=== PATIENT | male | born 1940 | race Caucasian/White ===

== ENCOUNTER → 2024-05-09 10:43 | Outpatient (REF) | payer OTHER, SELFPAY ==
[2024-05-09 12:01] LABS: % Basophils 1.4 % (0-2); % Immature Granulocytes 0.5 % (0-0.5); % Lymphocytes 40.3 % (20.5-51.1); % Monocytes 9.7 % (1.7-9.3); % Neutrophils 44.1 % (42.2-75.2); Absolute Basophils 0.1 10^3/uL (0-0.2); Absolute Eosinophils 0.3 10^3/uL (0-0.7); Absolute Lymphocytes 2.6 10^3/uL (1.2-3.4); Absolute Monocytes 0.6 10^3/uL (0.1-0.6); Absolute Neutrophils 2.9 10^3/uL (1.4-6.5); Hematocrit 45.7 % (39.0-52.0); Hemoglobin 15.8 g/dL (13.0-18.0); Mean Corp Hgb Conc. 34.6 g/dL (33.0-37.0); Mean Corpuscular Hgb 31.1 pg (27.0-31.0); Mean Platelet Volume 12.8 fL (7.4-10.4); Nucleated Red Blood Cells % 0 % (-); Platelet Count 136 10^3/uL (130-400); Red Blood Cell Count 5.08 10^6/uL (4.70-6.10); Red Cell Dist. Width 13.5 % (11.5-14.5); White Blood Cell Count 6.5 10^3/uL (4.8-10.8)
[2024-05-09 13:28] LABS: Blood Urea Nitrogen 22 mg/dl (9-20); Calcium 9.5 mg/dl (8.4-10.2); Carbon Dioxide 23 mmol/L (22-30); Chloride 107 mmol/L (98-107); Glucose 101 mg/dl (70-99); Potassium 4.7 mmol/L (3.5-5.1); Sodium 138 mmol/L (135-145); eGFR > 60.00
== END ==
LOC: REG 10:43
PROVIDERS: ATTENDING PHYSICIAN Registered Nurse
DX: R06.02 Shortness of breath (principal)
CPT/HCPCS: 36415; 71046; 80048; 85025

== ENCOUNTER 2024-05-11 10:42 | Emergency (ER) | payer OTHER, SELFPAY ==
[2024-05-11 10:49] VITALS: BP 112/60; BMI 25.8
--- NOTE | 2024-05-11 11:50 | ED.GENMED ---
Addendum entered and electronically signed by David Aguilar MD 05/12/24 20:01:
I had asked the patient or offered to recheck it today. Patient feels there is no significant change. No worse no significant improvement no systemic symptoms.
On exam I agree there is no significant change. This may be slightly less erythema. Clearly not worse. Patient is nontoxic. Is only been 24 hours. I was not expecting significant improvement just wanted to be sure it was not progressing. He
will continue outpatient treatment and observation. I did offer again to recheck it tomorrow after 3:00 if he had any concerns
Original Note:
History of Present Illness
General
Chief Complaint: Skin Problem
Source: patient
Exam Limitations: none
Time Seen by Provider: 05/11/24 11:42
History of Present Illness
History of Present Illness:
Patient was bitten in the finger of his second digit left hand yesterday by his own dog. Dog is up-to-date on immunizations. Seen at urgent care. Given a tetanus shot. Did not start antibiotics. Complain of increased swelling and pain. Some
chills last evening but no significant infectious systemic symptoms at this time
Past History
Past History
ED Past Medical History: Other (BPH, UTI) and Other (diverticulitis)
ED Past Surgical History: Other (Hernia repair)
Social History
Tobacco: Former smoker
Alcohol: None
Living: with family
Family History
Family History: Unable to obtain
Phy Exam
Physical Exam
Physical Exam:
General: Nontoxic appearing in no distress
Skin: Warm and dry, no rash
Neuro: Alert, nontoxic, grossly nonfocal
Psychiatric: Good eye contact and appropriate
Musculoskeletal: Swelling to the left second digit diffusely with a small puncture wound to the tuft. No drainage. Questionable slight minimal erythema to the dorsal hand. Motor or sensory neurovascular intact.
Course
Orders/Labs/Results
Orders:
Orders
05/11/24 11:49
Ampicillin/Sulbactam 3 G [Unasyn] 3 gm 0.9% Sodium Chloride 100 ml [Nss] 100 ml IV NOW
Vital Signs
Initial and Last Documented VS:
Initial Vital Signs
Temp Pulse Resp BP Pulse Ox
98.4 F 73 18 112/60 97
05/11/24 10:49 05/11/24 10:49 05/11/24 10:49 05/11/24 10:49 05/11/24 10:49
Last Documented Vital Signs
Temp Pulse Resp BP Pulse Ox
98.4 F 73 18 112/60 97
05/11/24 10:49 05/11/24 10:49 05/11/24 10:49 05/11/24 10:49 05/11/24 10:49
*Critical Care Note
Total Time (30-74mins, 75-104mins- exclusive of procedures): Not Applicable
Update Note
Update Note:
Patient with a local cellulitis secondary to dog bite. No significant systemic symptoms. Do not feel this requires ongoing IV antibiotics but feel a IV start would be reasonable. I also offered to recheck it tomorrow with any concerns.
ED Attending Note
-
Portions of this chart may have been created with voice recognition software.� Occasional wrong word or��sound alike� substitutions may have occurred due to the inherent limitations of voice recognition software.
Discharge Plan
Departure
Patient Disposition: Home (Routine Discharge)
Date of Disposition: 05/11/24
Time of Disposition: 11:51
Patient with high blood pressure during this ER visit?: No
Discharge Problem:
Left second digit cellulitis, Secondary to dog bite
Instructions: Cellulitis (Skin Infection), Adult (DC), Animal Bites ED
Prescriptions:
New
amoxicillin-pot clavulanate 875-125 mg tablet
1 tab PO BID Qty: 20 0RF
No Action
tamsulosin 0.4 MG capsule
0.4 mg PO HS
sumatriptan succinate 50 MG tablet
50 mg PO DAILYPRN PRN (Reason: migrain)
finasteride 5 MG tablet
5 mg PO HS
Saccharomyces boulardii 250 MG capsule
250 mg PO BID Qty: 30 0RF
metronidazole 500 MG tablet
500 mg PO TID Qty: 21 0RF
levofloxacin 500 MG tablet
500 mg PO DAILY Qty: 7 0RF
benzonatate 200 mg capsule
200 mg PO BID PRN (Reason: Cough) Qty: 14 0RF
Activity Restrictions/Additional Instructions:
Make sure you get a dose of Augmentin in this evening. The prescription was sent to your pharmacy.
As we discussed, I am here tomorrow evening at 7 PM. I will be happy to recheck it with any concern
However if you feel like is progressed significantly before then please return immediately for reevaluation
Follow-up with your primary physician in 2 to 3 days
Interventions
Interventions:
*Risk Screen - Suicide Last Done: 05/11/24 10:49
*Neglect/Abuse Screening Last Done: 05/11/24 10:49
ED- Fall Risk Assessment Last Done: 05/11/24 10:49
Discharge Date and Time
Print Language: LATVIAN
[2024-05-11] MEDS: TYLENOL 1000 MG PO (12:04)
[2024-05-11] MEDS: UNASYN IV (12:16)
== END 2024-05-11 12:52 | disposition home or self-care (01) ==
LOC: EMR 10:42
PROVIDERS: EMERGENCY PHYSICIAN Emergency Medicine; FAMILY PHYSICIAN Family Medicine
DX: S61.231A Puncture wound without foreign body of left index finger without damage to nail, initial encounter (principal); W54.0XXA Bitten by dog, initial encounter; N40.0 Benign prostatic hyperplasia without lower urinary tract symptoms; Z87.440 Personal history of urinary (tract) infections; Z87.891 Personal history of nicotine dependence
CPT/HCPCS: 99282; 96374

== ENCOUNTER 2024-05-13 19:04 | Inpatient (IN) | payer OTHER, SELFPAY ==
[2024-05-13 16:48] VITALS: BMI 26.5
[2024-05-13 16:50] VITALS: BP 153/86
--- NOTE | 2024-05-13 17:22 | CON.ORTHO ---
Consultation
-
Date/Time Consultation Requested: 445 PM 05/13/2024
Date/Time Consultation Performed: 515 PM 05/13/2024
Requesting Provider: Jeff
Performing Provider: Roland
Reason for Consultation: Left index dog bite
Consultation - Orthopedics
History
HPI: 84-year-old [id number] male presented to the [place] emergency department for evaluation of left index finger pain and swelling. He reports that several days ago he sustained a dog bite from his own dog to the distal aspect of his
left index finger. He initially presented to an urgent care who did not prescribe any antibiotics. 16 emergency department where he was given 1 dose of Unasyn and started on oral Augmentin on Sunday. He was seen again emergency department
yesterday without significant clinical improvement. Today he was seen emergency department because of worsening pain and swelling. This evening patient localizes pain to the tip of left index finger. He is noted some increasing swelling and
redness. 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 Denies fevers.
Allergies / Home Medications
Past medical history: BPH, diverticulitis
Past surgical history: Herniorrhaphy
Social history: Former smoker, lives with family
Family history: Not pertinent
Allergy/AdvReac Type Severity Reaction Status Date / Time
Sulfa (Sulfonamide Allergy Swelling Verified 05/11/24 10:49
Antibiotics)
�Medication �Instructions �Recorded
finasteride 5 mg tablet 5 mg PO HS 05/15/17
sumatriptan succinate 50 mg tablet 50 mg PO DAILYPRN PRN migrain 05/15/17
tamsulosin 0.4 mg capsule 0.4 mg PO HS 05/15/17
Saccharomyces boulardii 250 mg 250 mg PO BID #30 caps 05/19/17
capsule
levofloxacin 500 mg tablet 500 mg PO DAILY #7 tabs 05/19/17
metronidazole 500 mg tablet 500 mg PO TID #21 tabs 05/19/17
benzonatate 200 mg capsule 200 mg PO BID PRN Cough #14 caps 03/21/23
amoxicillin 875 mg-potassium 1 tab PO BID #20 tabs 05/11/24
clavulanate 125 mg tablet
Vital Signs / Lab Results
Temp Pulse Resp BP Pulse Ox
98.7 F 78 18 153/86 95
05/13/24 16:50 05/13/24 16:50 05/13/24 16:50 05/13/24 16:50 05/13/24 16:50
10 point review systems reviewed and negative unless otherwise stated
General: Pleasant, no acute distress at rest.
Musculoskeletal left upper extremity
Index finger with significant swelling and erythema noted distally, scabbing noted to both the ulnar and radial aspect of the distal index finger. No expressible drainage. There is some evidence of subcutaneous visible purulence however
There is some tenderness palpation along the flexor tendon sheath particularly over P2, no significant tenderness palpation over P1 or A1 rocío, there is some pain with passive extension of the finger, some fusiform swelling noted distally
There is some noted streaking erythema over the distal forearm
Quite limited flexion noted DIP and to lesser extent PIP
No tenderness palpation over the palm
Risk cap refill distally
Assessment / Plan
84-year-old male [id number] several days status post dog bite with clinical evidence of likely abscess versus felon over distal aspect of left index finger with some concerns for potential development of flexor tenosynovitis. At this point
had a long discussion with the patient's regarding diagnosis and treatment options. He is failed to show significant clinical improvement with several days of oral antibiotics. We discussed treatment options and he was in favor of being admitted
for IV antibiotics. Certainly will plan on close clinical reevaluation in the a.m. Should patient fail to have significant proven, I will have a low threshold for proceeding with irrigation debridement of left index finger and potentially flexor
tendon sheath depending on clinical improvement. Would recommend IV antibiotics overnight, radiographs of left index finger. Please keep patient n.p.o. at midnight prophylactically in case we do proceed with surgical irrigation debridement
tomorrow. Please reach out any questions or concerns.
[2024-05-13 17:33] LABS: % Basophils 0.6 % (0-2); % Eosinophils 1.9 % (0-6); % Immature Granulocytes 0.3 % (0-0.5); % Lymphocytes 18.9 % (20.5-51.1); % Monocytes 8.1 % (1.7-9.3); % Neutrophils 70.2 % (42.2-75.2); Absolute Basophils 0.1 10^3/uL (0-0.2); Absolute Eosinophils 0.2 10^3/uL (0-0.7); Absolute Lymphocytes 1.9 10^3/uL (1.2-3.4); Absolute Monocytes 0.8 10^3/uL (0.1-0.6); Hematocrit 41.1 % (39.0-52.0); Hemoglobin 14.7 g/dL (13.0-18.0); Mean Corp Hgb Conc. 35.8 g/dL (33.0-37.0); Mean Corpuscular Hgb 30.9 pg (27.0-31.0); Mean Corpuscular Volume 86.5 fL (80.0-94.0); Mean Platelet Volume 12.2 fL (7.4-10.4); Nucleated Red Blood Cells % 0 % (-); Platelet Count 178 10^3/uL (130-400); Red Blood Cell Count 4.75 10^6/uL (4.70-6.10); Red Cell Dist. Width 13.3 % (11.5-14.5)
[2024-05-13 17:43] LABS: Blood Urea Nitrogen 18 mg/dl (9-20); Calcium 9.4 mg/dl (8.4-10.2); Carbon Dioxide 21 mmol/L (22-30); Chloride 104 mmol/L (98-107); Glucose 110 mg/dl (70-99); Potassium 4.5 mmol/L (3.5-5.1); Sodium 135 mmol/L (135-145); eGFR > 60.00
--- NOTE | 2024-05-13 17:48 | ED.GENMED ---
History of Present Illness
General
Chief Complaint: Skin Problem
Source: patient
Exam Limitations: none
Time Seen by Provider: 05/13/24 17:03
History of Present Illness
History of Present Illness:
Patient with a dog bite to his left second digit 4 days ago. Seen at that time. No antibiotics started. I saw the patient 3 days ago. Local infection and early swelling to the digit with some mild erythema to the forearm dorsally and volar. Was
given a dose of Unasyn and started Augmentin. Was rechecked yesterday had remained stable. However in the last 24 hours has had some increased pain and increased redness along the volar aspect. No systemic symptoms.
Past History
Past History
ED Past Medical History: Other (BPH, UTI) and Other (diverticulitis)
ED Past Surgical History: Other (Hernia repair)
Social History
Tobacco: Former smoker
Alcohol: None
Living: with family
Family History
Family History: Unable to obtain
Review of Systems
Review of Systems
Constitutional: Denies fever or chills
Phy Exam
Physical Exam
Physical Exam:
General: Nontoxic appearing in no distress
Skin: Warm and dry, no rash
Neuro: Alert, nontoxic, grossly nonfocal
Psychiatric: Good eye contact and appropriate
Musculoskeletal: Swelling to the left second digit with erythema. The tip at the tuft has some white puslike areas under the laceration. Lymphangitis on the volar aspect of the arm.
Course
Orders/Labs/Results
Orders:
Orders
05/13/24 17:03
IV Insert/Care/Rem.- Treatment PRN
Finger(s)/Thumb 2 View Lt [CR Finger(s)/thumb Min 2 Vw Lt] Urgent
Comment:
Reason For Exam: bite to second digit
05/13/24 17:23
Basic Metabolic Panel Urgent
Complete Blood Count/With Diff Urgent
05/13/24 18:27
Ampicillin/Sulbactam 3 G [Unasyn] 3 gm 0.9% Sodium Chloride 100 ml [Nss] 100 ml IV NOW
Abnormal Lab Results
05/13/24
17:23
MPV 12.2 H fL
(7.4-10.4)
Absolute Neuts (auto) 7.0 H 10^3/uL
(1.4-6.5)
Absolute Monos (auto) 0.8 H 10^3/uL
(0.1-0.6)
Lymphocytes % 18.9 L %
(20.5-51.1)
Carbon Dioxide 21 L mmol/L
(22-30)
Glucose 110 H mg/dl
(70-99)
05/13/24 17:23
05/13/24 17:23
Vital Signs
Initial and Last Documented VS:
Initial Vital Signs
Temp Pulse Resp BP Pulse Ox
98.7 F 78 18 153/86 95
05/13/24 16:50 05/13/24 16:50 05/13/24 16:50 05/13/24 16:50 05/13/24 16:50
Last Documented Vital Signs
Temp Pulse Resp BP Pulse Ox
98.7 F 80 16 141/77 97
05/13/24 16:50 05/13/24 18:00 05/13/24 18:00 05/13/24 18:00 05/13/24 18:00
MDM/Problems Addressed
Differential Diagnosis Includes:
Patient's symptoms have not improved and pain level is increased overnight. Clear lymphangitis of the forearm. Discussed with orthopedics who evaluated. Agree with IV antibiotics and probable washout tomorrow
*Radiology
Radiology exam reviewed: preliminary read by ED provider (neg)
*Pulse Oximetry
Patient hypoxic: no
*Critical Care Note
Total Time (30-74mins, 75-104mins- exclusive of procedures): Not Applicable
ED Attending Note
-
Portions of this chart may have been created with voice recognition software.� Occasional wrong word or��sound alike� substitutions may have occurred due to the inherent limitations of voice recognition software.
Discharge Plan
Departure
Patient Disposition: Admit
Date of Disposition: 05/13/24
Time of Disposition: 17:50
Presentation/result/management discussed w/ accepting MD/DO: Hospitalist
Discharge Problem:
Dog bite left second digit, Tenosynovitis/lymphangitis
Prescriptions:
No Action
tamsulosin 0.4 MG capsule
0.4 mg PO HS
sumatriptan succinate 50 MG tablet
50 mg PO DAILYPRN PRN (Reason: migraine)
finasteride 5 MG tablet
5 mg PO HS
amoxicillin-pot clavulanate 875-125 mg tablet
1 tab PO BID Qty: 20 0RF
Referrals:
Rajeev Lorenz Jr., DO [Family Provider] -
Interventions
Interventions:
*Risk Screen - Suicide Last Done: 05/13/24 16:50
*General Assessment Last Done: 05/13/24 16:50
*Neglect/Abuse Screening Last Done: 05/13/24 16:50
ED- Fall Risk Assessment Last Done: 05/13/24 18:18
ED-Skin Assessment Last Done: 05/13/24 18:18
Discharge Date and Time
Print Language: [place]
[2024-05-13 18:00] VITALS: BP 141/77
--- NOTE | 2024-05-13 18:07 | HPS.HSE ---
Family Physician
-
Family Physician: Rajeev Lorenz Jr.
Chief Complaint
-
Dog bite
History of Present Illness
84-year-old man with left second finger dog bite 4 days ago. He was seen at urgent care, was not started on antibiotics. That night he came to the ER and started on Augmentin. He was seen again yesterday remained stable. In the last 24 hours
pain increased and he came back to the ER. No fever. Redness present. He got tetanus vaccine at urgent care on Sunday. His dog is vaccinated.
Medical History
Past Medical History
Past Medical History: Reports Other
Additional Past Medical History:
Prostate disease, diverticulosis
Past Surgical History: Reports Other
Additional Past Surgical History:
Hernia repair
Social History
Tobacco: Former Smoker
Alcohol: None
Drug: None
Personal:
Living: With Family
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
Family History
Family History: CAD (Mother who is also a smoker) and Other (Father at age 98)
Allergies / Home Medications
Allergies reflects when Allergies were last updated in [facility].
Home Medications with original date entered in [employer]
Allergy/Medication List:
Allergies
Allergy/AdvReac Type Severity Reaction Status Date / Time
Sulfa (Sulfonamide Allergy Swelling Verified 05/11/24 10:49
Antibiotics)
Home Medications
finasteride 5 mg tablet 5 mg PO HS 05/15/17
sumatriptan succinate 50 mg tablet 50 mg PO DAILYPRN PRN migraine 05/15/17
tamsulosin 0.4 mg capsule 0.4 mg PO HS 05/15/17
amoxicillin 875 mg-potassium clavulanate 125 mg tablet 1 tab PO BID #20 tabs 05/11/24
Review of Systems
-
A 12 point ROS was completed and negative except as noted: Yes
Constitutional: Denies Fever
Respiratory: Denies Trouble Breathing
Cardiac: Denies Chest Pain
Physical Exam
Vital Signs
Vital Signs
Temp Pulse Resp BP Pulse Ox
98.7 F 78 18 153/86 95
05/13/24 16:50 05/13/24 16:50 05/13/24 16:50 05/13/24 16:50 05/13/24 16:50
Physical Exam
General: Well Nourished
Respiratory: Clear
Cardiac: S1/S2 and Regular Rhythm
GI: Soft, Non Tender and Normal Bowel Sounds
Skin: Other (Left hand-finger with redness, pustular changes at the tip. Edema noted. Redness streaking towards the arm)
Neuro: AO x 3 and Nonfocal/grossly intact
Laboratory Results
-
05/13/24 17:23
05/13/24 17:23
Data Reviewed
-
Diagnostic Radiology: Image Personally Visualized and interpreted (X-ray-soft tissue edema left index finger. No foreign body)
Impression/Plan
-
IMPRESSION/PLAN:
# Dog bite cellulitis-treated with Augmentin as outpatient
Admit for IV antibiotics-Unasyn
Got tetanus vaccine on Sunday at urgent care
Xray with out FB or fracture
Ortho already consulted
NPO after MN in case needs a procedure.
# Prostate disease-continue finasteride and Flomax
# Migraine continue sumatriptan as needed
# Sigmoid diverticulosis
# DVT prophylaxis-Lovenox
# Full code
[2024-05-13 19:20] VITALS: BMI 25.8
[2024-05-13 19:35] VITALS: BP 149/83
[2024-05-13] MEDS: FLOMAX 0.4 MG PO (20:17)
[2024-05-13] MEDS: UNASYN IV (20:17)
[2024-05-13] MEDS: PROSCAR 5 MG PO (20:17)
[2024-05-13] MEDS: MOTRIN 400 MG PO (20:20)
[2024-05-13 23:43] VITALS: BP 149/71
[2024-05-13] MEDS: TYLENOL 650 MG PO (23:51)
[2024-05-14] VITALS (11 sets, daily range): BP systolic 121–152; BP diastolic 58–75
[2024-05-14] MEDS: UNASYN IV ×4 (02:10→20:30)
[2024-05-14] MEDS: MOTRIN 400 MG PO ×2 (02:13→09:41)
[2024-05-14] MEDS: ROXICODONE 5 MG PO ×2 (03:10→08:09)
--- NOTE | 2024-05-14 07:42 | W.PN.ORTHO ---
Today's Communication / Plan
-
84-year-old male status post dog bite with clinical evidence of left index finger abscess with concern for developing flexor tenosynovitis. Patient has failed outpatient oral antibiotics without significant improvement with IV antibiotics. Will
plan for operative irrigation debridement later this afternoon
N.p.o.
Please hold DVT prophylaxis
Pain control
Medical management per primary team
Plan 4 OR this afternoon pending medical clearance and OR availability
Subjective
.
.:
Patient reports no significant change in pain or appearance of index finger
Vital Signs and Labs
.
Vital Signs and Labs:
Temp Pulse Resp BP Pulse Ox
98.1 F 67 18 149/71 97
05/13/24 23:43 05/13/24 23:43 05/13/24 23:43 05/13/24 23:43 05/13/24 23:43
Physical Exam
-
Musculoskeletal left upper extremity
Erythema and significant swelling noted distal aspect of left index finger. There is purulence noted subcutaneously without any active drainage. No expressible purulence
There is fusiform swelling noted distal aspect of the left index finger, significant tenderness palpation along the flexor tendon sheath over distal phalanx and middle phalanx with significant reproducible pain with passive extension of finger
[2024-05-14 07:53] LABS: Hematocrit 40.2 % (39.0-52.0); Hemoglobin 14.1 g/dL (13.0-18.0); Mean Corp Hgb Conc. 35.1 g/dL (33.0-37.0); Mean Corpuscular Hgb 31.4 pg (27.0-31.0); Mean Corpuscular Volume 89.5 fL (80.0-94.0); Platelet Count 154 10^3/uL (130-400); Red Blood Cell Count 4.49 10^6/uL (4.70-6.10); Red Cell Dist. Width 13.2 % (11.5-14.5); White Blood Cell Count 8.4 10^3/uL (4.8-10.8)
[2024-05-14 08:18] LABS: Blood Urea Nitrogen 19 mg/dl (9-20); Carbon Dioxide 20 mmol/L (22-30); Chloride 110 mmol/L (98-107); Estimated Creatinine Clearance 67 ml/min; Glucose 93 mg/dl (70-99); Potassium 4.4 mmol/L (3.5-5.1); Sodium 137 mmol/L (135-145); eGFR > 60.00
--- NOTE | 2024-05-14 13:55 | W.PN.HOSP.TC ---
Today's Communication/Plan
-
Please send OR Cultures
IV AB
OR
Assessment / Plan
Assessment / Plan
Left index finger with pustular area. redness in the arm better
# Dog bite cellulitis-treated with Augmentin as outpatient
Admit for IV antibiotics-Unasyn
Got tetanus vaccine on Sunday at urgent care
Xray with out FB or fracture
Ortho already consulted
For OR this afternoon
# Prostate disease-continue finasteride and Flomax
# Migraine continue sumatriptan as needed
# Sigmoid diverticulosis
# DVT prophylaxis-Hold Lovenox
# Full code
Anticipated Discharge: Within 24 hours
Subjective/Interval History
-
Date of Service: May 14, 2024
Objective Data
-
Labs:
Laboratory Results
05/14/24
07:36
WBC 8.4
Hgb 14.1
Hct 40.2
Plt Count 154
Sodium 137
Potassium 4.4
Chloride 110 H
Carbon Dioxide 20 L
BUN 19
Creatinine 0.9
Glucose 93
Calcium 9.0
Vital Signs:
Vital Signs
Temp Pulse Resp BP Pulse Ox
97.9 F 64 18 152/73 97
05/14/24 07:00 05/14/24 07:00 05/14/24 07:00 05/14/24 07:00 05/14/24 07:00
I&O
05/13/24 05/14/24 05/15/24
06:59 06:59 06:59
Intake Total 540 / 540
Balance 540 / 540
[2024-05-14] MEDS: NSS 1000 IV ×2 (14:16→17:35)
--- NOTE | 2024-05-14 14:23 | PTCARENOTE ---
Patient pain in finger relieved with Motrin and Oxycodone. Finger elevated as ordered. NPO status maintained for OR today.
--- NOTE | 2024-05-14 14:48 | CM ---
Patient seen at bedside. IA Completed.
DX: dog bite, cellulitis - left finger
PMH: BPH, diverticulitis.
Patient lives in a 2 story home with his .
2 steps in to the home and 12 steps to bathroom.
PLOF: Independent, drives
Plan for I&D today
PCP: Dr. Rajeev Lorenz
Pharmacy: [facility]
PLAN: Discharge home. no anticipated needs.
--- NOTE | 2024-05-14 16:49 | OR.RPT ---
Addendum entered and electronically signed by Grady Watkins MD 05/27/24 13:39:
Sharp excision debridement of devitalized tissue including subcutaneous tissue, tendon and bone was utilized using a 15 blade, ronguer and currette. Size of incision measured approximatley 4 cm in length by 2 cm in width down to the level of bone
and tendon sheath.
Original Note:
Operative Report
Operative Report
Anesthesia Type:
Sedation with digital block
Operative Indications:
Left index finger dog bite with subsequent abscess development cellulitis and concern for flexor tenosynovitis
Operative Findings :
Significant purulent collection distal volar index finger, minimal purulence flexor tendon sheath
Complications:
None
Implants:
None
Procedure and Technique:
Irrigation debridement left index finger abscess and flexor tendon sheath
INDICATIONS FOR PROCEDURE:
84-year-old male presented status post dog bite left index finger with pain and swelling to the distal aspect left index finger. Initially presented to an urgent care and then subsequently to the emergency department multiple times over the course
of several days. He failed outpatient oral antibiotics and was subsequently admitted to the hospitalist service without significant improvement with IV antibiotics. We discussed treatment options. Given his examination concerning for subcutaneous
purulence as well as concern for developing flexor tenosynovitis, decision was made to proceed with surgery. We discussed risks benefits and alternatives of surgery. After discussion written informed consent was obtained for irrigation debridement
left index finger
OPERATIVE PROCEDURE:
Patient was seen identified the preoperative holding area. Operative extremity was marked. He was taken to the operating room where sedation was administered by the anesthesia providers. Operative extremity was then prepped and draped in normal
sterile fashion. Nonsterile tourniquet was applied. Timeout was performed again identifying the correct operative extremity. Antibiotics were held until after cultures were obtained. Tourniquet was inflated and a Som type incision was made
over the distal family to middle phalanx. Immediate subcutaneous purulence was encountered. Cultures were obtained sharp debridement was performed utilizing a rongeur and curette and copious normal saline solution. Decision was made to proceed
with irrigation debridement of flexor tendon sheath. A incision was made over the A1 rocío proximally and the flexor tendon sheath was opened. Flexor tendon sheath was also opened over the A5 rocío. 16-gauge angiocatheter was then inserted both
proximally and distally and proximally 25 cc of normal saline solution was flushed throughout the flexor tendon sheath. Satisfied with the extent of surgery, wound was copiously irrigated normal saline solution. Tourniquet was released and
hemostasis was achieved with bipolar electrocautery. Wound was closed utilizing 3-0 nylon suture for skin. Closure was somewhat loose to allow for drainage. Sterile dressing was applied consisting of Xeroform, 4 x 4 gauze Vishnu Webril as well as
a volar splint with Shashi bandage. Anesthesia was reversed and patient was taken to PACU in stable condition. Postoperative plans will include continued antibiotics. Will follow-up culture results. Will recommend initiation of 3 times daily
Betadine soaks starting tomorrow morning.
Disposition:
PACU stable condition
[2024-05-14] MEDS: FLOMAX 0.4 MG PO (20:30)
[2024-05-14] MEDS: COLACE 100 MG PO (20:30)
[2024-05-14] MEDS: PROSCAR 5 MG PO (20:30)
[2024-05-15] VITALS (7 sets, daily range): BP systolic 112–152; BP diastolic 59–87
[2024-05-15] MEDS: UNASYN IV ×4 (01:47→20:39)
[2024-05-15] MEDS: NSS 1000 IV ×2 (01:49→14:03)
--- NOTE | 2024-05-15 07:35 | W.PN.ORTHO ---
Today's Communication / Plan
-
84-year-old male postop day 1 status post irrigation debridement left index finger doing well
Nonweightbearing left upper extremity in splint
3 times daily soaks recommended with Betadine solution
Follow-up cultures
Continue antibiotics until speciation and tailor appropriately
Medical management per primary team
Plan to see patient outpatient basis in 1 to 2 weeks for wound check
May be discharged without splint and soft dressings only
Please keep wound dry and covered until outpatient follow-up
Please reach out any questions or concerns
Subjective
.
.:
Patient resting comfortably in bed. No acute overnight events.
Vital Signs and Labs
.
Vital Signs and Labs:
Lab Results
05/14/24 07:36
05/14/24 07:36
Temp Pulse Resp BP Pulse Ox
98.1 F 82 18 122/64 98
05/15/24 03:14 05/15/24 03:14 05/15/24 03:14 05/15/24 03:14 05/15/24 03:14
Physical Exam
-
Musculoskeletal left upper extremity
Left index finger wound visualized
Improved swelling erythema
Significantly improved tenderness palpation over distal aspect of index finger
No pain with passive stretch
Sutures in place
[2024-05-15] MEDS: COLACE 100 MG PO ×2 (08:01→20:38)
--- NOTE | 2024-05-15 14:34 | PN.CDI ---
CDI
- -
CDI:
Physician Documentation Request
Admit Date: 05/13/24 19:04
Dear Doctor Roland,
Please review the following and provide your response in the progress notes.
Clinical Indicators:
Pt admitted with left index finger abscess with concern for developing flexor tenosynovitis/Left finger cellulitis
Documented per Operative report, ' Tourniquet was inflated and a Som type incision was made over the distal family to middle phalanx. Immediate subcutaneous purulence was encountered. Cultures were obtained sharp debridement was performed
utilizing a rongeur and curette and copious normal saline solution...Decision was made to proceed with irrigation debridement of flexor tendon sheath. A incision was made over the A1 rocío proximally and the flexor tendon sheath was
opened...proximally 25 cc of normal saline solution was flushed throughout the flexor tendon sheath...'
Could you provide, in the progress notes further clarification regarding the debridement /types of debridements
Please specify the type of debridement performed:
1. Excisional Debridement - defined as removal by excision of devitalized tissue, necrosis or slough
2. Non-excisional debridement - defined as removal of devitalized tissue, necrosis or slough by such methods as irrigation, brushing, scrubbing or washing.
If the debridement was excisional, please also include:
1. Type of instrument used (#11 blade, #15 blade etc.)
2. What was excised (necrotic tissue, gangrenous tissue, slough etc.)
For excisional or non-excisional, please also include:
1. Depth of debridement (skin, subcutaneous tissue, fascia, muscle, bone etc)
2. Size and appearance of the wound (L, W, D, color of wound, drainage)
Use of terms such as suspected, likely, concern for, or probable (associated with a specific diagnosis that is being evaluated, monitored, or treated as if it exists) are acceptable and can be coded in the inpatient setting, when documented at the
time of discharge.
Thank you,
Esperanza Xie RN
CDI Specialist
[place] [facility]
Please use your independent medical judgment in providing your response.
--- NOTE | 2024-05-15 15:21 | VNURNOTE ---
Home Health Liaison met with patient at bedside to discuss [facility] nurse visits, schedule and homebound status. Patient is agreeable and understands that visits at home will be 1-3 x per week to assess and teach medical management, wound care and
infection prevention. [facility] brochure provided with contact information. Patient is aware that [facility] will contact them for start of care within a few days after discharge from .
[facility] referral completed in [facility].
--- NOTE | 2024-05-15 15:29 | W.PN.HOSP.TC ---
Today's Communication/Plan
-
Await CX
IV AB
Assessment / Plan
Assessment / Plan
Left index finger status post surgery with sutures in
Tenderness much better
# Dog bite cellulitis-treated with Augmentin as outpatient
Status post I&D by Dr. Watkins 05/14/2024
OR cultures pending
IV antibiotics-Unasyn
Got tetanus vaccine on Sunday at urgent care
Xray with out FB or fracture
# Prostate disease-continue finasteride and Flomax
# Migraine continue sumatriptan as needed
# Sigmoid diverticulosis
# DVT prophylaxis-restart Lovenox
# Full code
Anticipated Discharge: Within 24 hours
Subjective/Interval History
-
Date of Service: May 15, 2024
Objective Data
-
Vital Signs:
Vital Signs
Temp Pulse Resp BP Pulse Ox
98.0 F 68 16 112/59 93
05/15/24 11:00 05/15/24 11:00 05/15/24 11:00 05/15/24 11:00 05/15/24 11:00
I&O
05/14/24 05/15/24 05/16/24
06:59 06:59 06:59
Intake Total 540 / 540 124 / 124
Balance 540 / 540 124 / 124
--- NOTE | 2024-05-15 16:42 | CM ---
Patient seen at bedside.
Post-op I&D dog bite, celllulitis.
Discussed discharge planning.
Spoke with Dr. Collazo regarding VN.
Options of agencies given to patient.
[facility] referral to [facility] via [facility]
CM consult completed.
Plan: Discharge to home with VN
[2024-05-15] MEDS: LOVENOX 40 MG SC (17:20)
[2024-05-15] MEDS: FLOMAX 0.4 MG PO (20:37)
[2024-05-15] MEDS: PROSCAR 5 MG PO (20:38)
[2024-05-16] MEDS: TYLENOL 650 MG PO (00:20)
[2024-05-16] MEDS: UNASYN IV ×3 (01:35→14:24)
[2024-05-16] MEDS: NSS 1000 IV (03:40)
--- NOTE | 2024-05-16 04:11 | PTCARENOTE ---
This RN assumed care of this patient at 0330 am.
[2024-05-16 07:00] VITALS: BP 142/79
[2024-05-16] MEDS: COLACE PO (07:45)
[2024-05-16] MEDS: MOTRIN 400 MG PO (08:12)
[2024-05-16 15:00] VITALS: BP 108/56
--- NOTE | 2024-05-16 15:39 | W.PN.HOSP.TC ---
Today's Communication/Plan
-
discharge
Assessment / Plan
Assessment / Plan
Left index finger status post surgery with sutures in
Tenderness much better, no discharge
[facility] si s2 normal
chest CTA
# Dog bite cellulitis-treated with Augmentin as outpatient
Status post I&D by Dr. Watkins 05/14/2024
OR cultures no org, [facility] only.
Unasyn changed to augmentin for 10 days
Got tetanus vaccine on Sunday at urgent care
Xray with out FB or fracture
# Prostate disease-continue finasteride and Flomax
# Migraine continue sumatriptan as needed
# Sigmoid diverticulosis
# DVT prophylaxis-restart Lovenox
# Full code
Anticipated Discharge: Today
Subjective/Interval History
-
Date of Service: May 16, 2024
Objective Data
-
Vital Signs:
Vital Signs
Temp Pulse Resp BP Pulse Ox
97.4 F 68 18 142/79 95
05/16/24 07:00 05/16/24 07:00 05/16/24 07:00 05/16/24 07:00 05/16/24 07:00
I&O
05/15/24 05/16/24 05/17/24
06:59 06:59 06:59
Intake Total 124 / 124 1740 / 1740
Balance 124 / 124 1740 / 1740
--- NOTE | 2024-05-16 15:41 | W.DS.TRANS ---
Addendum entered and electronically signed by Eddie Collazo MD 05/16/24 16:12:
dictation- [id number]
Original Note:
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
-
Discharge Instructions:
Discharge Diagnosis/Procedures Dog bite cellulitis index finger
Prostate disease
Migraines
Diverticulosis
Diet As tolerated
Activity As tolerated
Driving Restrictions Not until seen by your Dr
Wound Care Please start TID betadine soaks for 20 minutes .
Please mix betadine with warm saline solution.
The mixture should have the appearance of coca
cola. To be done 0600 1400 2200
Instructions:
Stand-Alone Forms:
Changes to Home Medications: Yes
Discharge Medications:
DC Medications w/original date entered in [employer]
finasteride 5 mg tablet 5 mg PO HS Urinary Issue 05/15/17
sumatriptan succinate 50 mg tablet 50 mg PO DAILYPRN PRN migraine 05/15/17
tamsulosin 0.4 mg capsule 0.4 mg PO HS Urinary Issue 05/15/17
acetaminophen 325 mg tablet 650 mg (2 x 325 mg) PO Q4HPRN PRN mild pain, try first #0 tabs 05/15/24
ibuprofen 400 mg tablet 400 mg PO Q6HPRN PRN mild pain #10 tabs 05/15/24
amoxicillin 875 mg-potassium clavulanate 125 mg tablet 1 tab PO Q12H Infection #20 tabs 05/16/24
Home Medication Changes
new
AB motrin
Pending Results: No
[2024-05-16 15:55] VITALS: BP 108/56
== END 2024-05-16 17:53 | disposition home health service (06) | DRG 516 ==
LOC: 4 WEST ACU 19:04
PROVIDERS: ADMITTING PHYSICIAN Hospitalist; CONSULT PHYSICIAN Orthopaedic Surgery; EMERGENCY PHYSICIAN Emergency Medicine; FAMILY PHYSICIAN Family Medicine
PROC: 0PBV0ZZ Excision of Left Finger Phalanx, Open Approach (ICD-10-PCS; 2024-05-14)
DX: M65.842 Other synovitis and tenosynovitis, left hand (principal); L02.512 Cutaneous abscess of left hand; W54.0XXA Bitten by dog, initial encounter; Z87.891 Personal history of nicotine dependence; L03.019 Cellulitis of unspecified finger; G43.909 Migraine, unspecified, not intractable, without status migrainosus; N40.0 Benign prostatic hyperplasia without lower urinary tract symptoms; I89.1 Lymphangitis
CPT/HCPCS: 73140; 80048; 85025; 85027; 87070; 87075; 87077; 87205; 93005; 99285

== ENCOUNTER → 2024-08-05 08:48 | Outpatient (REF) | payer OTHER, SELFPAY | LOC: HWRAD 08:48 | PROVIDERS: ATTENDING PHYSICIAN Nurse Practitioner Adult Health | DX: M25.561 Pain in right knee (principal) | CPT/HCPCS: 73564 ==

== ENCOUNTER 2025-09-18 22:14 | Observation (INO) | payer OTHER, SELFPAY ==
[2025-09-18] VITALS (15 sets, daily range): BP systolic 109–183; BP diastolic 51–88; BMI 25.8; BMI 26.0
--- NOTE | 2025-09-18 19:25 | ED.GENMED ---
History of Present Illness
General
Chief Complaint: Chest Pain
Source: patient
Exam Limitations: none
Time Seen by Provider: 09/18/25 19:13
Nursing documentation reviewed up to this point in time: agreed with
History of Present Illness
History of Present Illness:
Patient presents to ED secondary to sudden onset of chest pain, while he was at home watching TV. Chest pain described as 'crushing', pressure, in the middle of chest, nonradiating, without any associated shortness of breath, nausea, diaphoresis,
or dizziness. Patient states that he has had chest pain in the past, secondary to reflux, which usually resolves with drinking water and walking around. However, patient states that his chest pain today is different. Denies previous history of
similar symptoms. Denies recent illness. Denies recent travel. Denies back pain. Denies recent change in medications or diet. Denies recent surgery. Denies leg pain or swelling. Denies recent weight changes. Denies family history of heart
disease.
Past History
Past History
ED Past Medical History: Other (BPH, UTI) and Other (diverticulitis)
ED Past Surgical History: Other (Hernia repair)
Social History
Tobacco: Former smoker
Alcohol: None
Living: with family
Family History
Family History: Unable to obtain
Review of Systems
Review of Systems
Allergies reviewed?: Yes
All Other Systems: ROS reviewed and negative except as documented in HPI and ROS
Constitutional: Reports no symptoms
EENT: Reports no symptoms
Respiratory: Reports no symptoms; Denies trouble breathing
Cardiac: Reports chest pain; Denies diaphoresis
ABD/GI: Reports no symptoms; Denies nausea or vomiting
Musculoskeletal: Reports no symptoms
Skin: Reports no symptoms
Neurological: Reports no symptoms
Phy Exam
Physical Exam
Physical Exam:
Physical Exam
General: mild distress, not acutely ill. afebrile
Head: nc/at. eomi
Neck: supple. no meningeal signs. no jvd
Heart: s1/s2 regular rate and rhythm. systolic ejection murmur
Lungs: no acute respiratory distress. clear bilaterally. chest wall nontender to palpation
Abdomen: normal bowel sounds. not tender.
Neuro: alert and oriented x 3. no focal neurological deficits
Skin: no rash
Psychiatric: well kept. interactive and cooperative
Extremities: no edema. no calf tenderness.
Scores
Heart Score for Chest Pain Patients
STEMI patient?: No
History: Moderately Suspicious
ECG: Normal
Age: >/= 65 years
Risk Factors: 1 or 2 Risk Factors
Troponin: </= Normal Limit
Heart Score for Chest Pain Patients: 4
Heart Score Risk: 20.3% MACE over next 6 weeks
Course
Orders/Labs/Results
Orders:
Orders
09/18/25 18:56
EKG [Electrocardiogram (*1)] Urgent
Reason for Study: Chest Pain
09/18/25 18:57
EKG- Treatment ONCE
09/18/25 19:21
Aspirin Chewable [Low Strength Aspirin] 324 mg PO NOW STA
Nitroglycerin Sublingual [Nitrostat (Sublingual)] 0.4 mg SL NOW STA
CR Chest Portable - 1 View Urgent
Comment:
Reason For Exam: chest pain
Reason Study Needs to be Portable: Patient Unstable
09/18/25 19:44
Complete Blood Count/With Diff Urgent
Comprehensive Metabolic Panel Urgent
D-Dimer Urgent
Prothrombin Time Urgent
Troponin I Urgent
09/18/25 20:04
Nitroglycerin Ointment [Nitro-Bid] 0.5 inch TOPICAL NOW STA
09/18/25 20:05
Nitroglycerin Ointment [Nitro-Bid] 1 inch .ROUTE .[facility]
09/18/25 20:35
Electrocardiogram (*1) Urgent
Reason for Study: Chest Pain
EKG- Treatment ONCE
09/18/25 21:50
Admit/Transfer Patient As Directed
Co-Sign Provider:
Level of Care: Observation services
Assign to:: Telemetry
Physician / Group: Sarita
Diagnosis: chest pain
Reason for Telemetry: Chest Pain syndromes
Date to Stop Telemetry: 09/20/25
Time to Stop Telemetry: 11:00
09/18/25 21:51
Code Status As Directed
Resuscitation Status: Full Code
PRN Pain Medication Management As Directed
May give lesser potent ordered pain med per pt: Yes
preference::
Protocol:: Medication orders for pain may be administered in a
manner that supports deferring to patient preference
when the pt is:
- Requesting an ordered lesser potent pain medication.
Least to most potent pain medications are defined
as: acetaminophen < NSAID < tramadol < opioids
(morphine, oxycodone, hydromorphone).
- Requesting a lesser dose of the same medication IF
ORDERED.
- Requesting a less intrusive route of administration
if both routes are prescribed by the provider (PO <
IV).
09/18/25 22:04
Calcium 200mg(Ca. Carb. 500mg) [Tums Chewable Tablet] 200 mg PO NOW STA
09/18/25 22:40
Acetaminophen [Tylenol] 650 mg PO Q4HPRN PRN
Finasteride [Proscar] 5 mg PO HS
Mag Hydrox/Al Hydrox/Simeth [Maalox] 30 ml PO Q4HPRN PRN
Ondansetron Injectable [Zofran] 4 mg IV Q6HPRN PRN
Sumatriptan Succinate [Imitrex] 50 mg PO DAILYPRN PRN migraine
Tamsulosin [Flomax] 0.4 mg PO HS
09/18/25 22:40
Echo 2D MMode Color/Doppler Routine
Reason for Study: chest pain
CARDIOLOGY CONSULT Routine
Consulting Provider: Twila King
Was physician already notified: No
Reason for consult: chest pain
Consult Notification Routine
Specialty to Notify: Cardiology
Date consulting provider notified: 09/18/25
Time consulting provider notified: 22:44
Notified:: Provider
Activity As Directed
Activity Level: With Assistance
ECG as needed As Directed
ECG as needed for:: Chest Pain
Additional Instructions:: with chest pain x 2 episodes.
INT (Intravenous Needle Therapy) As Directed
Comment: maintain peripheral IV access
Intake/ Output As Directed
Frequency: Per unit guidelines
Pneumatic Compression Sleeves As Directed
Type: Knee high
Vital Signs As Directed
Frequency: q4h
Weight As Directed
Frequency: Once
Pulse Ox/spot Check [RESP] Routine
Quantity: 1
Special Instructions: on admission and then every shift if on oxygen
DX Deep Vein Thrombosis Video Routine
09/18/25 22:56
Troponin I Stat
09/19/25 01:57
Troponin I Q3H
Comment: at admit & Q3H for 3 total including ED draws, obtain ECG with each level
09/19/25 04:00
Calcium 200mg(Ca. Carb. 500mg) [Tums Chewable Tablet] 200 mg PO Q6HPRN PRN
09/19/25 05:00
Troponin I Q3H
Comment: at admit & Q3H for 3 total including ED draws, obtain ECG with each level
09/19/25 06:00
Basic Metabolic Panel IN AM
Cardiovascular Evaluation IN AM
Complete Blood Count/No Diff IN AM
Glycohemoglobin (HgbA1c) IN AM
09/19/25 08:00
Aspirin Low Dose EC [Aspir Low (Enteric Coated)] 81 mg PO DAILY
09/20/25 11:00
DC Protocol for Telemetry ONCE
Abnormal Lab Results
09/18/25
19:44
MPV 11.7 H fL
(7.4-10.4)
Glucose 123 H mg/dl
(70-99)
AST 88 H U/L
(17-59)
09/18/25 19:44
09/18/25 19:44
Vital Signs
Initial and Last Documented VS:
Initial Vital Signs
Temp Pulse Resp BP Pulse Ox
97.7 F 81 26 183/88 97
09/18/25 19:01 09/18/25 19:01 09/18/25 19:01 09/18/25 19:01 09/18/25 19:01
Last Documented Vital Signs
Temp Pulse Resp BP Pulse Ox
97.8 F 57 19 109/51 96
09/18/25 23:12 09/18/25 23:12 09/18/25 23:12 09/18/25 23:12 09/18/25 23:36
MDM/Problems Addressed
MDM/Problems Addressed:
History and exam concerning for unstable angina. Patient reports resolution of chest pain after administration of sublingual nitroglycerin tablet. Patient placed on half inch Nitropaste. Patient will be admitted for further evaluation treatment.
Full-strength aspirin given.
*Pulse Oximetry
SaO2: 97
Oxygen Mode of Delivery: Room air
Patient hypoxic: no
*EKG
Interpreted by ED Provider?: Yes
EKG Intrepretation Date: 09/18/25
Heart Rate: 78
Rate: normal
Rhythm: sinus
Ischemia: T-wave inversion
*Critical Care Note
Total Time (30-74mins, 75-104mins- exclusive of procedures): Not Applicable
ED Attending Note
-
Portions of this chart may have been created with voice recognition software.� Occasional wrong word or��sound alike� substitutions may have occurred due to the inherent limitations of voice recognition software.
Discharge Plan
Departure
Patient Disposition: Admit
Date of Disposition: 09/18/25
Time of Disposition: 21:30
Admit to: Telemetry
Presentation/result/management discussed w/ accepting MD/DO: Hospitalist
Discharge Problem:
Chest pain
Interventions
Interventions:
*Risk Screen - Suicide Last Done: 09/18/25 19:01
*General Assessment Last Done: 09/18/25 19:01
*Neglect/Abuse Screening Last Done: 09/18/25 19:01
*ED COVID-19 Vaccine History Last Done: 09/18/25 19:01
*ED Influenza Vaccine History Last Done: 09/18/25 19:01
[facility] Fall Risk Assessment Tool Last Done: 09/18/25 19:55
*Nursing Disposition Last Done: 09/18/25 22:19
ED- Cardiac Assessment Last Done: 09/18/25 19:56
Discharge Date and Time
Discharge Date/Time: 09/18/25 22:26
[2025-09-18] MEDS: LOW STRENGTH ASPIRIN 324 MG PO (19:46)
[2025-09-18] MEDS: NITROSTAT (SUBLINGUAL) 0.4 MG SL (19:47)
[2025-09-18 19:51] LABS: Hematocrit 45.5 % (39.0-52.0); Hemoglobin 15.3 g/dL (13.0-18.0); Mean Corp Hgb Conc. 33.6 g/dL (33.0-37.0); Mean Corpuscular Volume 90.5 fL (80.0-94.0); Nucleated Red Blood Cells % 0 % (-); Platelet Count 157 10^3/uL (130-400); Red Cell Dist. Width 13.2 % (11.5-14.5)
[2025-09-18] MEDS: NITRO-BID 0.5 INCH TOPICAL (20:06)
[2025-09-18 20:08] LABS: INR 1.07; PT 14.0 Sec (11.4-14.6)
[2025-09-18 20:13] LABS: D-Dimer < 0.27 ug/mlFEU (0.00-0.50)
[2025-09-18 20:14] LABS: Troponin I < 0.012 ng/ml
[2025-09-18 20:15] LABS: ALT (SGPT) 46 U/L (0-50); AST (SGOT) 88 U/L (17-59); Albumin 4.3 g/dl (3.5-5.0); Alkaline Phosphatase 63 U/L (38-126); Blood Urea Nitrogen 18 mg/dl (9-20); Calcium 9.2 mg/dl (8.4-10.2); Carbon Dioxide 28 mmol/L (22-30); Chloride 104 mmol/L (98-107); Estimated Creatinine Clearance 66 ml/min; Glucose 123 mg/dl (70-99); Potassium 4.3 mmol/L (3.5-5.1); Sodium 135 mmol/L (135-145); Total Protein 7.3 g/dl (6.3-8.2); eGFR > 60.00
--- NOTE | 2025-09-18 21:33 | W.PN.UPDATE ---
Update Note
Progress Note Update
Patient seen in conjunction with nurse practitioner. I agree with the findings and physical. Concur with assessment and plan unless stated otherwise.
Patient is a 85-year-old male who has past medical history significant for BPH, migraine headaches, no known coronary artery disease who presents to the emergency department with substernal chest pressure approximately 1 hour prior to arrival at 7
PM. He received sublingual nitroglycerin x 1 and is currently chest pain-free.
Patient reports that he did have about 1 hour of symptoms which he describes as chest pressure in the substernal and midsternal region without any radiation and no associated shortness of breath diaphoresis or nausea. ED report that he tried to get
up to walk around to see if this will improve thinking that it may be related to his reflux. However there was no improvement. He also stated that he did not feel right. He denies any dizziness or lightheadedness at the time.
Patient denies any prior exertional chest pain, exertional dyspnea, palpitations, leg swelling orthopnea or PND. He has no prior CAD history or any recent workup for ischemic heart disease. He denies history of diabetes, hyperlipidemia or strokes.
He denies any recent cough cold or flulike symptoms. He reports intermittent episodes of indigestion and reflux for stated that this feels different and his last meal was at around 2 PM without symptoms.
The emergency department he was afebrile, blood pressure was 137/70 with a pulse of 66 and oxygen saturation of 95% on room air. ECG shows a normal sinus rhythm at a rate of 64 with incomplete right bundle branch block which is similar from prior.
No acute ST or T wave change. Initial troponin was 0.012.
Chest x-ray was clear. CBC was completely unremarkable. Electrolytes BUN/creatinine were all normal.
Assessment and plan
Chest pain�acute episode of substernal chest pain radiating to the arms associated with tachycardia and shortness of breath on arrival. Currently chest pain-free after a single dose of sublingual nitroglycerin.
� Admit to telemetry observation
� Aspirin 324 x 1
� Trend troponins every 3 hours, ECG prn recurrent chest pain
� Will start anticoagulation if troponin elevated
-Nitroglycerin paste started (currently cp free)
� Check lipid panel, A1c in a.m. and repeat ECG in a.m.
� Echocardiogram if available tomorrow
� If negative blood tests and repeat EKG are unremarkable, consider inpatient or early outpatient stress testing
�Cardiology consult
DVT processes�SCDs
CODE STATUS�full code
--- NOTE | 2025-09-18 21:37 | HPS.HSE ---
Family Physician
-
Family Physician: Dominic London
Chief Complaint
-
Midsternal chest pain, reflux
History of Present Illness
85-year-old male complaining of sudden onset of chest pain while at home watching TV. He reports pain was in the middle of his chest nonradiating described as crushing pressure he denies radiation, shortness of breath, nausea, diaphoresis,
vomiting, lightheadedness, fever, chills, injury. He attempted to drink water and walk around due to having chest pain in the past related to reflux however this felt different. He states the pain was 5 out of 10 after receiving sublingual nitro
dropped down to 2 out of 10 then is 0 out of 10 after Nitropaste however he is having some acid reflux. I did offer some Tums at current time which he states he wants to wait on. He has past medical history of GERD, migraines, former smoker, BPH,
UTI, diverticulitis, hernia repair
Medical History
Past Medical History
Past Medical History: Reports Other
Additional Past Medical History:
GERD
migraines
former smoker-quit 40 years ago
BPH
UTI
diverticulitis,
Past Surgical History: Reports Other
Additional Past Surgical History:
hernia repair
Social History
Tobacco: Former Smoker (Quit 40 years ago)
Alcohol: None
Drug: None
Personal:
Living: With Family ( daughter son-in-law 4 grandchildren 109)
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
Family History
Family History: Other (Mother [place] cachexia age 72 Father 98 old age 2 sisters healthy)
Allergies / Home Medications
Allergies reflects when Allergies were last updated in [employer].
Home Medications with original date entered in [employer]
Allergy/Medication List:
Allergies
Allergy/AdvReac Type Severity Reaction Status Date / Time
Sulfa (Sulfonamide Allergy Swelling Verified 09/18/25 18:58
Antibiotics)
Home Medications
finasteride 5 mg tablet 5 mg PO HS Urinary Issue 05/15/17
sumatriptan succinate 50 mg tablet 50 mg PO DAILYPRN PRN migraine 05/15/17
tamsulosin 0.4 mg capsule 0.4 mg PO HS Urinary Issue 05/15/17
Review of Systems
-
History Source: Patient
A 12 point ROS was completed and negative except as noted: Yes
Constitutional: Denies Fever, Fatigue or Chills
EENT: Denies Sore Throat or Runny Nose
Respiratory: Denies Cough or Trouble Breathing
Cardiac: Reports Chest Pain (Midsternal); Denies Diaphoresis, Palpitations or Syncope
Abdomen/GI: Reports Other (Acid reflux); Denies Abdominal Pain, Nausea, Vomiting, Diarrhea, Constipated, Bloody Stools or Black Stools
: Denies Dysuria, Frequency, Flank Pain, Incontinence, Difficulty Voiding or Urgency
Musculoskeletal: Denies Joint Pain or Edema
Skin: Denies Itching or Rash
Neurological: Denies Dizzy, Headache or Weakness
Endocrine: Reports No Symptoms
Hematologic/Lymphatic: Reports No Symptoms
Psych: Reports Calm
Physical Exam
Vital Signs
Vital Signs
Temp Pulse Resp BP Pulse Ox
97.7 F 66 17 137/70 95
09/18/25 19:01 09/18/25 20:06 09/18/25 19:55 09/18/25 20:06 09/18/25 19:55
Physical Exam
General: Comfortable and Conversant; No Pain, Fever or Chills
HEENT: NormoCephalic, Anicteric, Moist mucous membranes, PERRLA, [place] Conjunctivae and No Ptosis
Respiratory: Clear; No Wheezes, Rales or Rhonchi
Cardiac: S1/S2 and Regular Rhythm; No Murmur, Rub, Gallop or Peripheral Edema
Breast: Deferred by me
GI: Soft, Non Tender, Non Distended, Normal Bowel Sounds and No Hepatosplenomegaly
Rectal: Deferred by Provider
Genito-urinary: Deferred by me
Musculoskeletal: No Clubbing, No Cyanosis and No Edema
Skin: Warm and Dry; No Rash
Neuro: AO x 3, No Motor Deficits, Nonfocal/grossly intact, Cranial Nerves Intact and No Sensory Deficits; No Slurred Speech, Facial Droop, Tremors or Sedated
Psych: Calm
Laboratory Results
-
09/18/25 19:44
09/18/25 19:44
Laboratory Results
PT 14.0 Sec (11.4-14.6) 09/18/25 19:44
INR 1.07 09/18/25 19:44
Total Bilirubin 1.0 mg/dl (0.2-1.3) 09/18/25 19:44
AST 88 U/L (17-59) H 09/18/25 19:44
ALT 46 U/L (0-50) 09/18/25 19:44
Alkaline Phosphatase 63 U/L (38-126) 09/18/25 19:44
Troponin I < 0.012 ng/ml 09/18/25 19:44
Data Reviewed
-
Diagnostic Radiology: Report Reviewed by me
Lab Data: Labs Reviewed by me
Impression/Plan
-
Impression/plan:
Observation telemetry
#Chest pain concern for ACS versus GERD
#Chest pain resolved status post 1 nitro sublingual and Nitropaste
-Continue Nitropaste 1/2 inch paste
-Given aspirin 324 mg p.o. continue aspirin 81 mg daily
Troponin<0.012 will trend
-Consult cardiology
-Tums as needed for reflux, maalox
EKG sinus bradycardia 58 bpm, incomplete RBBB, QTc B402 MS nonspecific T wave abnormality lateral wall leads
CXR: No acute cardiopulmonary process
#Chronic RBBB
#BPH
Continue Flomax 0.4 mg at bedtime, finasteride 5 mg at bedtime
#GERD
No current meds
#Migraines- no current headache
sumatriptan prn
Full code
[2025-09-18] MEDS: TUMS CHEWABLE TABLET 200 MG PO (22:21)
[2025-09-18] MEDS: FLOMAX 0.4 MG PO (23:17)
[2025-09-18] MEDS: PROSCAR 5 MG PO (23:17)
[2025-09-18 23:28] LABS: Troponin I 0.013 ng/ml
[2025-09-19 02:40] LABS: Troponin I 0.013 ng/ml
[2025-09-19 03:19] VITALS: BP 113/70
--- NOTE | 2025-09-19 03:39 | PTCARENOTE ---
Patient received from ED via stretcher; telemetry order> SR-SB w/ BBC on the monitor. VSS. No c/o chest pain or SOB. AAOx3. Steady gait. Nitro paste 'patch' to right anterior chest (applied in ED). Troponin x3 ordered w/ EKG. PMH/ medications
reviewed by this RN and patient. Plan of care discussed. Call hernández within reach.
Trops:
@1944 (ED) trop <0.12
@2256 <0.13
@0157 <0.13
EKGs unchanged
[2025-09-19 06:15] LABS: Hematocrit 40.9 % (39.0-52.0); Hemoglobin 13.5 g/dL (13.0-18.0); Mean Corp Hgb Conc. 33.0 g/dL (33.0-37.0); Mean Corpuscular Volume 91.7 fL (80.0-94.0); Platelet Count 154 10^3/uL (130-400); Red Cell Dist. Width 13.3 % (11.5-14.5)
[2025-09-19 06:41] LABS: Troponin I < 0.012 ng/ml
[2025-09-19 07:55] VITALS: BP 101/49
--- NOTE | 2025-09-19 07:56 | CON.CAR ---
Addendum entered and electronically signed by Rock Beck MD 09/19/25 11:38:
85-year-old man with chest discomfort. Last dose of sumatriptan hand was 2 or 3 days ago, not associated with onset of chest pain
PMH: GERD, migraines, BPH, history of UTI, diverticulitis
PSH: Herniorrhaphy
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
Meds: Reviewed, as outpatient, Proscar, sumatriptan as needed, tamsulosin
Rest of history as below. Reviewed in detail and agree unless otherwise specified
101/49, pulse 52, respiratory rate 16 head neck exam unremarkable, lungs are clear, regular rate rhythm no murmurs abdomen benign extremities without clubbing cyanosis or edema
ECG, sinus bradycardia left axis, incomplete right bundle branch block, borderline first-degree AV block nonspecific T wave changes subtle new T wave inversion V4 through V6
Hemoglobin 13.5, peak troponin 0.013, D-dimer negative, total cholesterol 151, LDL 85, HDL 45
Impression:
Chest discomfort with subtle lateral T wave changes and troponin 0.013
GERD, migraines, BPH, diverticulitis
Plan:
At this point it seems unlikely that he has a true ACS, but he did have a minimally detectable troponin and he has developed subtle T wave changes laterally.
We agreed that we would repeat his EKG early this afternoon and if no change she could be discharged and scheduled for an outpatient stress echocardiogram.
Given heart rate, blood pressure, cholesterol only medication to add on top of his admission meds would be aspirin 81 mg a day pending his stress test
We will arrange for cardiac follow-up.
Original Note:
Consultation
Consultation Request
Date/Time Consultation Requested: 09/18/2025 evening
Date/Time Consultation Performed: 09/19/2025
Requesting Provider: Dr. Stein
Performing Provider: Zara Cisneros PA-C for Dr. Rock Beck
Reason for Consultation: Chest pain
Medical History
-
History of Present Illness:
Patient is an 85-year-old male with past medical history significant for GERD, migraines, former tobacco abuse, BPH, history of UTI, diverticulitis and hernia repair who presented to emergency department 09/18/2025 with acute onset of
substernal/epigastric chest pressure which occurred while he was watching TV in the mid afternoon. He attempted to drink some water and walk around thinking it may have been reflux related however symptoms persisted. He does report pressure was
different than his normal reflux symptoms. He denied having associated shortness of breath, diaphoresis, lightheadedness or radiation into jaw or arm. When symptoms persisted for an hour he came to emergency department. He reports symptoms
started to subside on presentation to emergency department and was 2 out of 10 (5 out of 10 at its greatest). Blood pressure was found to be elevated on admission 183/88. EKG demonstrated sinus rhythm with incomplete right bundle branch block.
Chest x-ray showed no acute cardiopulmonary abnormality. Troponin x 4 negative. D-dimer negative. He was provided aspirin and sublingual nitroglycerin with slow resolution of his symptoms over 10 to 15 minutes. At time of this exam patient
denies having any additional chest discomfort. He does note some mild nauseous and this but thinks it is because he has not eaten since lunch yesterday. In general patient reports he is active around the house and with playing with his grandkids.
He denies any recent change in functional decline or exertional symptoms.
Past medical history:
GERD
Migraine headaches
BPH
UTI
Diverticulitis
Former tobacco abuse
Hernia repair
Past Medical History
Past Medical History: Other (See HPI)
Past Surgical History: Other (Hernia repair, finger abscess with drainage/debridement after dog bite)
Social History
Tobacco: Former Smoker (Quit in his 40s)
Alcohol: None
Drug: None
Personal:
Living: With Family (, daughter, son-in-law and 4 grandkids)
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
Family History
Family History: Other (Mother was a very heavy smoker with multiple health issues and possibly had CT in her 70s, father at 98 of old age)
Allergies / Home Medications
Allergy/AdvReac Type Severity Reaction Status Date / Time
Sulfa (Sulfonamide Allergy Swelling Verified 09/18/25 18:58
Antibiotics)
�Medication �Instructions �Recorded �Confirmed �Type
finasteride 5 mg tablet 5 mg PO HS Urinary Issue 05/15/17 09/18/25 History
sumatriptan succinate 50 mg tablet 50 mg PO DAILYPRN PRN migraine 05/15/17 09/18/25 History
tamsulosin 0.4 mg capsule 0.4 mg PO HS Urinary Issue 05/15/17 09/18/25 History
Review of Systems
-
History Source: Patient
All other systems: Negative unless noted
Physical Exam
Vital Signs
Temp Pulse Resp BP Pulse Ox
98.3 F 61 17 113/70 97
09/19/25 03:19 09/19/25 03:19 09/19/25 03:19 09/19/25 03:19 09/19/25 03:19
GEN: No distress, awake, Ox3
HEENT: supple, anicteric, mmm
LUNGS: CTA, no wheezes/rales
CV: Reg, S1/S2, no murmur, rub or gallop
ABD: soft, BS+, NT/ND
EXT: No edema, clubbing or cyanosis
NEURO: Gross non-focal
SKIN: No rash, warm, dry, pink
Lab Results
09/19/25 05:57
Troponin I < 0.012 ng/ml 09/19/25 05:57
Impression / Plan
-
PCP: Dr. London
Cylinder Press Feeder: None prior to admission, initial consultation Dr. Rock Beck
Impression:
Presented 09/18/2025 with epigastric/substernal chest pressure
GERD
Migraine headaches
BPH
UTI
Diverticulitis
Former tobacco abuse
Hernia repair
Plan:
-Presented 09/18/2025 with epigastric/substernal chest pressure. Chest pressure lasted approximately 2 hours in duration and was not exacerbated with activity or exertion. Does have history of GERD however symptoms were different than his usual
reflux symptoms. Symptoms had improved greatly upon arrival to emergency department and resolved within 15 minutes of getting aspirin and sublingual nitroglycerin.
-Blood pressure was found to be elevated on admission 183/88 but has normalized throughout stay with most recent reading 101/49. No history of hypertension.
-Troponin x 4 negative.
-Chest x-ray demonstrated no acute cardiopulmonary abnormality. D-dimer negative.
-EKG demonstrated sinus rhythm with incomplete right bundle branch block and nonspecific T wave abnormality in lateral leads.
-No additional chest pain/pressure overnight and remains pain-free. Patient does admit to some mild nausea which he thinks is because he has not had anything to eat since early afternoon yesterday.
-Echo has been ordered.
-Lipids pending
-Would have patient get up and ambulate around unit. If remains chest pain/pressure free consider discharge with arrangement of outpatient echocardiogram and stress test within the next week.
[facility] 09/19/2025:
Patient is an 85-year-old male with past medical history significant for GERD, migraines, former tobacco abuse, BPH, history of UTI, diverticulitis and hernia repair who presented to emergency department 09/18/2025 with acute onset of
substernal/epigastric chest pressure which occurred while he was watching TV in the mid afternoon. He attempted to drink some water and walk around thinking it may have been reflux related however symptoms persisted. He does report pressure was
different than his normal reflux symptoms. He denied having associated shortness of breath, diaphoresis, lightheadedness or radiation into jaw or arm. When symptoms persisted for an hour he came to emergency department. He reports symptoms
started to subside on presentation to emergency department and was 2 out of 10 (5 out of 10 at its greatest). Blood pressure was found to be elevated on admission 183/88. EKG demonstrated sinus rhythm with incomplete right bundle branch block.
Chest x-ray showed no acute cardiopulmonary abnormality. Troponin x 4 negative. D-dimer unremarkable. He was provided aspirin and sublingual nitroglycerin with slow resolution of his symptoms over 10 to 15 minutes. At time of this exam patient
denies having any additional chest discomfort. He does note some mild nauseous and this but thinks it is because he has not eaten since lunch yesterday. In general patient reports he is active around the house and with playing with his grandkids.
He denies any recent change in functional decline or exertional symptoms.
Data Reviewed
-
EKG: Report Reviewed by me, Discussed with Physician and Discussed with Patient
Radiology: Report Reviewed by me, Discussed with Physician and Discussed with Patient
Labs: Labs Reviewed by me, Discussed with Physician and Discussed with Patient
Old Records: Reviewed
[2025-09-19] MEDS: ASPIR LOW (ENTERIC COATED) 81 MG PO (08:07)
[2025-09-19 08:38] LABS: Blood Urea Nitrogen 18 mg/dl (9-20); Calcium 8.8 mg/dl (8.4-10.2); Carbon Dioxide 23 mmol/L (22-30); Chloride 109 mmol/L (98-107); Estimated Creatinine Clearance 66 ml/min; Glucose 96 mg/dl (70-99); HDL Cholesterol 45 mg/dl; LDL Cholesterol, Calculated 85 mg/dl; Potassium 4.5 mmol/L (3.5-5.1); Sodium 136 mmol/L (135-145); Very Low Density Lipoprotein 21 mg/dl (0-30); eGFR > 60.00
[2025-09-19 10:04] LABS: Glycohemoglobin (HgbA1c) 6.2 % (4.0-5.9)
[2025-09-19] MEDS: PROTONIX 40 MG PO (11:18)
[2025-09-19 11:26] VITALS: BP 109/55
--- NOTE | 2025-09-19 11:55 | PTCARENOTE ---
Ambulated full length of unit without cardiac or respiratory symptoms. Reports nausea is much improved. Eager for discharge, aware of need for repeat EKG.
--- NOTE | 2025-09-19 12:02 | W.PN.HOSP.TC ---
Addendum entered and electronically signed by Sánchez Rose MD 09/20/25 14:42:
[id number]
Original Note:
Today's Communication/Plan
-
ASA 81mg daily
PPI 40mg daily
F/u PCP, cards outpt
F/u stress test, echo outpt
Assessment / Plan
Assessment / Plan
GEN: No distress, awake, Ox3
HEENT: supple, anicteric, mmm
LUNGS: CTA, no wheezes/rales
CV: Reg, S1/S2, no murmur, rub or gallop
ABD: soft, BS+, NT/ND
EXT: No edema, clubbing or cyanosis
NEURO: Gross non-focal
SKIN: No rash, warm, dry, pink
#Chest pain
-unlikely true ACS
-Minimally detectable troponin, subtle T wave changes
� Cardiology consulted
� Ambulating well with no chest pain
� Repeat EKG this afternoon
� Aspirin 81 mg daily until stress test, echo outpatient
� Follow-up echo and stress test within 1 week
� Follow-up cardiology outpatient
� LDL 85
� X-ray no acute cardiopulmonary process
� Continue with PPI as well
#Chronic RBBB
#BPH
Continue Flomax 0.4 mg at bedtime, finasteride 5 mg at bedtime
#GERD
Start PPI
� Follow-up with PCP outpatient for regular screening
#Migraines- no current headache
sumatriptan prn
Full code
More than 30 minutes spent in discharge including
Final examination of the patient
Summarizing hospital stay
Instructions for continuing care to all relevant caregivers
Preparation of discharge records, prescriptions, and referral forms
Total time spent (in minutes): 36
Anticipated Discharge: Today
Subjective/Interval History
-
Date of Service: September 19, 2025
No acute events overnight, chest pain resolved
Objective Data
-
Labs:
Laboratory Results
09/19/25
05:57
WBC 5.9
Hgb 13.5
Hct 40.9
Plt Count 154
Sodium 136
Potassium 4.5
Chloride 109 H
Carbon Dioxide 23
BUN 18
Creatinine 0.9
Glucose 96
Calcium 8.8
Vital Signs:
Vital Signs
Temp Pulse Resp BP Pulse Ox
97.7 F 53 17 109/55 94
09/19/25 11:26 09/19/25 11:26 09/19/25 11:26 09/19/25 11:26 09/19/25 11:26
I&O
09/18/25 09/19/25 09/20/25
06:59 06:59 06:59
Intake Total 420 / 420
Balance 420 / 420
Review of Systems
-
History Source: Patient
All other systems: Not reviewed unless documented
Data Reviewed
-
Diagnostic Radiology: Report Reviewed by me
Labs: Labs Reviewed by me
--- NOTE | 2025-09-19 12:04 | CM ---
Met with patient, reviewed IMM. Patient lives with , dgtr,son in law and 4 grandchildren in 2 level home with 2 steps to enter, 12 steps to second floor. He does not use any DME. No history of SNF or VNA. He is admitted with chest pain but
states he feels better and does not anticipate any needs at discharge.
PCP Dr. London
Pharmacy: [facility]
PLAN:: Home no needs.
--- NOTE | 2025-09-19 12:11 | W.DS.TRANS ---
DC Summary - [employer]
-
Discharge Instructions:
Discharge Diagnosis/Procedures #Chest pain
Diet Low Cholesterol,Low Fat
Blood Work cbc and cmp in 1 week
Others Tests ECHO and Stress test in 1 week with cardiology
Instructions:
Stand-Alone Forms:
Changes to Home Medications: Yes
Discharge Medications:
DC Medications w/original date entered in [employer]
finasteride 5 mg tablet 5 mg PO HS Urinary Issue 05/15/17
sumatriptan succinate 50 mg tablet 50 mg PO DAILYPRN PRN migraine 05/15/17
tamsulosin 0.4 mg capsule 0.4 mg PO HS Urinary Issue 05/15/17
aspirin 81 mg tablet,delayed release 81 mg PO DAILY 30 days #30 tabs 09/19/25
pantoprazole 40 mg tablet,delayed release 40 mg PO DAILY 30 days #30 tabs 09/19/25
Home Medication Changes
aspirin 81 mg tablet,delayed release 81 mg PO DAILY 30 days #30 tabs 09/19/25
pantoprazole 40 mg tablet,delayed release 40 mg PO DAILY 30 days #30 tabs 09/19/25
Pending Results: No
== END 2025-09-19 14:14 | disposition home or self-care (01) ==
LOC: 2 NORTH 22:14
PROVIDERS: Emergency Medicine; ADMITTING PHYSICIAN Internal Medicine; ATTENDING PHYSICIAN Internal Medicine; CONSULT PHYSICIAN Internal Medicine Cardiovascular Disease; EMERGENCY PHYSICIAN Emergency Medicine; FAMILY PHYSICIAN Internal Medicine Geriatric Medicine
DX: R07.89 Other chest pain (principal); I45.10 Unspecified right bundle-branch block; G43.909 Migraine, unspecified, not intractable, without status migrainosus; K21.9 Gastro-esophageal reflux disease without esophagitis; N40.0 Benign prostatic hyperplasia without lower urinary tract symptoms; Z72.0 Tobacco use; Z79.82 Long term (current) use of aspirin; Z87.440 Personal history of urinary (tract) infections; Z79.899 Other long term (current) drug therapy
CPT/HCPCS: 71045; 80048; 80053; 80061; 83036; 84484; 85025; 85027; 85379; 85610; 93005; 99285; G0378

== ENCOUNTER → 2025-10-05 10:59 | Outpatient (REF) | payer OTHER, SELFPAY | LOC: HWRCS 10:59 | PROVIDERS: ATTENDING PHYSICIAN Internal Medicine Cardiovascular Disease; FAMILY PHYSICIAN Internal Medicine Geriatric Medicine | DX: R07.9 Chest pain, unspecified (principal) | CPT/HCPCS: 93306 ==

== ENCOUNTER → 2025-10-14 09:54 | Outpatient (REF) | payer OTHER, SELFPAY | LOC: RCS 09:54 | PROVIDERS: ATTENDING PHYSICIAN Internal Medicine Cardiovascular Disease; FAMILY PHYSICIAN Internal Medicine Geriatric Medicine | DX: R07.9 Chest pain, unspecified (principal) | CPT/HCPCS: 93017; 93350 ==